=== PATIENT | female | born 1970 ===

== ENCOUNTER 2019-10-27 15:12 | Emergency (ER) | payer SELFPAY ==
[2019-10-27] MEDS ORDERED: IBUPROFEN 800 MG TAB PO ONE (15:24)
[2019-10-27] MEDS ORDERED: dexAMETHasone 4 MG/ML VIAL IM ONE (15:24)
[2019-10-27] MEDS ORDERED: HYDROcodone/ACETAMINOPHEN 5-325 MG TAB PO ONE (15:24)
[2019-10-27] MEDS ORDERED: CYCLOBENZAPRINE 10 MG TAB PO ONE (15:24)
--- NOTE | 2019-10-27 15:24 | Emergency Department Report ---
ED Upper Extremity Inj HPI - General Chief Complaint: Extremity Injury, Upper Stated Complaint: LEFT ARM/SHOULDER PAIN Time Seen by Provider: 10/27/19 15:23 Source: patient Mode of arrival: Stretcher Limitations: No Limitations - History of Present Illness Initial Comments: 49 yo obese female who comes to the ER complaining of pain to the left of spine near her shoulder blade. This is a chronic pain. She has taken naproxen in the past for. However, she is out of naproxen. Today it hurts so bad she could not go to work. Patient denies any injury, fall or trauma. Patient lives with a roommate. She has no primary care. She is currently on no home daily medications. She denies any surgical history. Patient reports being told that she has arthritis, and chronic pain due to disc disease cervical 3-6. She also states that she has been told in the past that she has prediabetes. Patient denies any chest pain. She denies any substernal pain. She denies any nausea vomiting or diaphoresis. Patient denies abdominal pain. Patient denies diarrhea. Patient is nontoxic and [id number] on exam. Patient states the pain is sharp and it is improved with certain ways that she turns her neck. On exam she has muscle spasm of the paraspinal thoracic muscles. There is no midline tenderness. - Related Data Previous Rx's Medication Instructions Recorded Last Taken Type Cyclobenzaprine [Flexeril] 10 mg PO TID PRN #10 tablet 10/27/19 Unknown Rx Naproxen [Naprosyn] 500 mg PO BID PRN #20 tablet 10/27/19 Unknown Rx predniSONE [Deltasone] 20 mg PO DAILY #5 tablet 10/27/19 Unknown Rx Allergies Allergy/AdvReac Type Severity Reaction Status Date / Time No Known Allergies Allergy Verified 10/27/19 15:44 ED Review of Systems ROS: Stated complaint: LEFT ARM/SHOULDER PAIN Other details as noted in HPI Comment: All other systems reviewed and negative ED Past Medical Hx - Past Medical History Previous Medical History?: Yes Additional medical history: Osteoarthritis, disc fusion - Surgical History Past Surgical History?: No - Family History Family history: no significant - Social History Smoking Status: Current Every Day Smoker Substance Use Type: None - Medications Home Medications: Home Medications Medication Instructions Recorded Confirmed Last Taken Type Cyclobenzaprine [Flexeril] 10 mg PO TID PRN #10 tablet 10/27/19 Unknown Rx Naproxen [Naprosyn] 500 mg PO BID PRN #20 tablet 10/27/19 Unknown Rx predniSONE [Deltasone] 20 mg PO DAILY #5 tablet 10/27/19 Unknown Rx ED Physical Exam - General Limitations: No Limitations General appearance: alert, in no apparent distress - Head Head exam: Present: atraumatic, normocephalic - Eye Eye exam: Present: normal appearance - ENT ENT exam: Present: mucous membranes moist - Neck Neck exam: Present: normal inspection - Respiratory Respiratory exam: Present: normal lung sounds bilaterally. Absent: respiratory distress - Cardiovascular Cardiovascular Exam: Present: regular rate, normal rhythm. Absent: systolic murmur, diastolic murmur, rubs, gallop - GI/Abdominal GI/Abdominal exam: Present: soft, normal bowel sounds - Extremities Exam Extremities exam: Present: normal inspection - Back Exam Back exam: Present: normal inspection - Neurological Exam Neurological exam: Present: alert, oriented X3 - Psychiatric Psychiatric exam: Present: normal affect, normal mood - Skin Skin exam: Present: warm, dry, intact, normal color. Absent: rash ED Course Vital Signs 10/27/19 15:12 Temperature 97.9 F Pulse Rate 84 Respiratory 13 Rate Blood Pressure 141/86 [Right] O2 Sat by Pulse 98 Oximetry ED Medical Decision Making - Medical Decision Making Vital Signs 10/27/19 15:12 Temperature 97.9 F Pulse Rate 84 Respiratory 13 Rate Blood Pressure 141/86 [Right] O2 Sat by Pulse 98 Oximetry Patient was medicated for pain for her acute on chronic pain. She was given a work note as requested. Patient being discharged home with a PCP referral for follow-up. - Differential Diagnosis a/c shoulder pain/spasm Critical care attestation.: If time is entered above; I have spent that time in minutes in the direct care of this critically ill patient, excluding procedure time. ED Disposition Clinical Impression: Muscle spasm, Chronic pain Disposition: DC- TO HOME OR SELFCARE Is pt being admited?: No Does the pt Need Aspirin: No Condition: Stable Instructions: Muscle Spasm (ED) Additional Instructions: warm compresses meds as ordered follow up with pcp referral below Prescriptions: predniSONE [Deltasone] 20 mg PO DAILY #5 tablet Cyclobenzaprine [Flexeril] 10 mg PO TID PRN #10 tablet PRN Reason: Muscle Spasm Naproxen [Naprosyn] 500 mg PO BID PRN #20 tablet PRN Reason: Pain Referrals: JANA GOMES MD [Staff Physician] - 3-5 Days Forms: Work/School Release Form(ED) Time of Disposition: 15:24
[2019-10-27 16:38] VITALS: BP 141/81
== END 2019-10-27 16:34 | disposition home or self-care (01) ==
LOC: ED 15:12
DX: G89.29 Other chronic pain (principal); M25.512 Pain in left shoulder; F17.200 Nicotine dependence, unspecified, uncomplicated; Z79.899 Other long term (current) drug therapy
CPT/HCPCS: 96372; 99283; J1100